=== PATIENT | female | born 1965 | race Caucasian/White ===

== ENCOUNTER 2017-02-14 11:22 | Emergency (ER) | payer MEDICARE, MEDICAID ==
[2017-02-14] MEDS ORDERED: NS 0.9% 1000 ML* 1,000 ML IV ONE (13:12)
--- NOTE | 2017-02-14 13:44 | RAD ---
HISTORY: Syncope COMPARISONS: None TECHNIQUE: Multiple contiguous axial CT scans were obtained of the head without intravenous contrast. FINDINGS: HEMORRHAGE/INFARCT: There is no hemorrhage or acute infarct. MASSES/SHIFT: There is no mass or shift. EXTRA-AXIAL SPACES: There are no extra-axial fluid collections. SULCI AND VENTRICLES: There is diffuse and proportional enlargement of the sulci and ventricles. CEREBRUM: There are no focal parenchymal abnormalities. BRAINSTEM: There are no focal parenchymal abnormalities. CEREBELLUM: There are no focal parenchymal abnormalities. VESSELS: The vessels are grossly normal. PARANASAL SINUSES: The paranasal sinuses are clear. ORBITS: The orbits are unremarkable. BONES AND SOFT TISSUE: No bone or soft tissue abnormalities are noted. OTHER: None IMPRESSION: NO ACUTE INTRACRANIAL PATHOLOGY.
--- NOTE | 2017-02-14 13:57 | RAD ---
HISTORY: The COMPARISONS: None VIEWS: 4: Frontal dual-energy and lateral views of the chest. FINDINGS: CARDIOMEDIASTINAL SILHOUETTE: The cardiomediastinal silhouette is normal. AMA: The ama are normal. PLEURA: The costophrenic angles are sharp. No pleural abnormalities are noted. LUNG PARENCHYMA: There is hyperinflation with flattening of the diaphragm and expansion of the AP diameter of the chest. ABDOMEN: The upper abdomen is clear. There is no subphrenic gas. BONES AND SOFT TISSUES: No bone or soft tissue abnormalities are noted. OTHER: None. IMPRESSION: HYPERINFLATION. NO ACTIVE CARDIOPULMONARY DISEASE.
[2017-02-14 14:09] LABS: Hematocrit 42 % (35-47); Hemoglobin 13.9 g/dl (12.0-16.0); Mean Corpuscular HGB Conc 34 g/dl (31-36); Mean Corpuscular Hemoglobin 30 pg (27-31); Mean Corpuscular Volume 88 fL (80-97); Mean Platelet Volume 12 um3 (7.4-10.4); Red Cell Distribution Width 14 % (10.5-15)
[2017-02-14 14:10] LABS: Add Diff/Slide Review? Slide Review Added; Comments Flag Yes
[2017-02-14 14:26] LABS: Albumin 4.4 g/dL (3.2-5.2); BUN/Creatinine Ratio 28.4 (8-20); Calcium 9.7 mg/dL (8.6-10.3); EGFR African American 106.8 (>60); EGFR Non-African American 83.1 (>60); Globulin 2.6 g/dL (2-4); Magnesium 2.2 mg/dL (1.9-2.7); Potassium 4.1 mmol/L (3.5-5.0); Total Bilirubin 0.4 mg/dL (0.2-1.0)
[2017-02-14 14:27] LABS: Troponin I 0.01 ng/mL (<0.04)
--- NOTE | 2017-02-14 14:59 | ED ---
Diann Elizondo Nilda, scribed for Aba Mei MD on 02/14/17 at 1325 . Syncope/Near Syncope - HPI Summary HPI Summary: This patient is a 51 year old F presenting to [facility] accompanied by assisted living staff with a chief complaint of unwitnessed fall today. Per residential aid, patient had a very large BM, walked to her room, fell, and was found on the ground with urinary incontinence, LOC, and confusion upon awaking (lasting 10 mins). Symptoms alleviated by spontaneous resolution. Patient denies trauma from fall, CP, palpitations, YANG, neck pain, and back pain. Per aid, the patient s mother notes that pt has had a similar episode in the past, stating that after having large BM, pt would experience dizziness upon standing. Pt is currently on no medications. - History Of Current Complaint Chief Complaint: EDSyncope Time Seen by Provider: 02/14/17 12:47 Hx Obtained From: Family/Hog Scraper - residential living staff Onset/Duration: Sudden Onset, Lasting Minutes, Resolved Context: Unwitnessed Activity At Onset: Other - walking to room Aggravating Factor(s): Nothing Alleviating Factor(s): Spontaneous Resolution Associated Signs And Symptoms: Other - denies trauma from fall, CP, palpitations , YANG, neck pain, and back pain. - Allergies/Home Medications Allergies/Adverse Reactions: Allergies Allergy/AdvReac Type Severity Reaction Status Date / Time No Known Allergies Allergy Verified 02/14/17 11:36 PMH/Surg Hx/FS Hx/Imm Hx Sensory History: Denies: Hx Legally Blind EENT History: Denies: Hx Deafness Infectious Disease History: No Infectious Disease History: Denies: Traveled Outside the [place] in Last 30 Days - Family History Known Family History: Negative: Hypertension, Diabetes - Social History Lives: Assisted Living Alcohol Use: None Substance Use Type: Reports: None Smoking Status (MU): Never Smoked Tobacco Review of Systems Negative: Palpitations, Chest Pain Positive: incontinence Positive: Other - negative: trauma from fall, neck pain, back pain Neurological: Other - LOC, confusion resolved Positive: Syncope - resolved. Negative: Headache All Other Systems Reviewed And Are Negative: Yes Physical Exam Triage Information Reviewed: Yes Vital Signs On Initial Exam: Initial Vitals Temp Pulse Resp BP Pulse Ox 97.8 F 100 18 158/81 95 02/14/17 11:31 02/14/17 11:31 02/14/17 11:31 02/14/17 11:31 02/14/17 11:31 Vital Signs Reviewed: Yes Appearance: Positive: Well-Appearing, No Pain Distress Skin: Positive: Warm, Skin Color Reflects Adequate Perfusion Head/Face: Positive: Normal Head/Face Inspection Eyes: Positive: EOMI ENT: Positive: Normal ENT inspection Neck: Positive: Nontender Respiratory/Lung Sounds: Positive: Clear to Auscultation, Breath Sounds Present Cardiovascular: Positive: RRR. Negative: Murmur Abdomen Description: Positive: Nontender Musculoskeletal: Positive: Strength/ROM Intact Neurological: Positive: Sensory/Motor Intact, Alert, Oriented to Person Place, Time, CN Intact II-III Psychiatric: Positive: Normal - [place] Coma Scale Best Eye Response: 4 - Spontaneous Best Motor Response: 6 - Obeys Commands Best Verbal Response: 5 - Oriented Coma Scale Total: 15 Diagnostics - Vital Signs Vital Signs Temp Pulse Resp BP Pulse Ox 02/14/17 11:31 97.8 F 100 18 158/81 95 - Laboratory Result Diagrams: 02/14/17 14:00 02/14/17 14:00 Lab Statement: Any lab studies that have been ordered have been reviewed, and results considered in the medical decision making process. - Radiology CXR Radiology Interpretation Completed By: Radiologist - Hyperinfiltation. No acute cardiopulmonary disease. ED physician has reviewed this report and agrees. - CT Brain CT Interpretation Completed By: Radiologist - no acute intracranial pathology. ED physician has reviewed this report and agrees. - EKG 1150 Cardiac Rate: NL EKG Rhythm: Sinus Rhythm - @ 85 bpm EKG Interpretation: nl NE, QRS, and QT. No STEMI Course/Dx Assessment/Plan: This patient is a 51 year old F presenting to [facility] accompanied by assisted living staff with a chief complaint of unwitnessed fall today. Per residential aid, patient had a very large BM, walked to her room, fell, and was found on the ground with urinary incontinence, LOC, and confusion upon awaking (lasting 10 mins). Symptoms alleviated by spontaneous resolution. Patient denies trauma from fall, CP, palpitations, YANG, neck pain, and back pain. Per aid, the patients mother notes that pt has had a similar episode in the past, stating that after having large BM, pt would experience dizziness upon standing. Pt is currently on no medications. Pending EKG, CXR, CT Brain, and labs. EKG reveals NSR, 85 bpm, nl NE, QRS, and QT. No STEMI. CXR reveals hyperinfiltration. No acute cardiopulmonary disease. CT brain reveals NAD. The patient has no heart murmur, and has normal heart size on xray. Her CT is negative, and labs are good. She has a history of getting dizzy after valsalva and large BM. She had a large BM today as well. She sounds like she had a vaso vagal syncopal episode after BM. The patient was discussed with her PMD and she will be seen in the office for continued work up. - Diagnoses Provider Diagnoses: Vasovagal syncope, Hypertension - Physician Notifications Discussed Care of Patient With: Dhara Matthews - Dr Matthews is aware of patient history, and presentation today and of her work up here. She wants to follow up with the patient for outpatient Echo, and further work up in the next week. Time Discussed With Above Provider: 14:56 Discharge - Discharge Plan Condition: Good Disposition: HOME Patient Education Materials: Syncope (ED), Hypertension (ED) Referrals: Dhara Matthews MD [Primary Care Provider] - 2 Days The documentation as recorded by the Diann warner Nilda accurately reflects the service I personally performed and the decisions made by me, Aba Mei MD.
[2017-02-14 15:03] LABS: TSH (Thyroid Stimulating Horm) 2.53 mcIU/mL (0.34-5.60)
[2017-02-14 15:15] VITALS: BP 109/68
== END 2017-02-14 15:15 | disposition home or self-care (01) ==
LOC: ED 11:22
DX: R55 Syncope and collapse (principal); M54.2 Cervicalgia; M54.9 Dorsalgia, unspecified; I10 Essential (primary) hypertension
CPT/HCPCS: 36415; 70450; 71020; 80053; 83605; 83735; 84443; 84484; 85025; 85379; 93005; 96360; 99282

== ENCOUNTER 2017-03-18 11:22 | Emergency (ER) | payer MEDICAID, MEDICARE ==
[2017-03-18 11:43] VITALS: BP 111/72
--- NOTE | 2017-03-18 12:05 | UC ---
Upper Extremity HPI - HPI Summary HPI Summary: c/o left arm pain that comes and goes, fell in shower this am and son helped her up. didnt c/o of pain at that time but now she is. no radiation up into neck mostly mid arm. no limited rom at this time. didnt take anything otc no other c/o pain anywhere else - History of Current Complaint Chief Complaint: UCUpperExtremity Stated Complaint: LEFT ARM INJURY Time Seen by Provider: 03/18/17 11:57 Hx Obtained From: Patient Hx Last Menstrual Period: January ?: No Onset/Duration: Sudden Onset - this am - fell in shower Severity Initially: Mild Severity Currently: Mild Character: Dull Aggravating Factor(s): Movement Alleviating Factor(s): Nothing Associated Signs And Symptoms: Positive: Negative - Allergies/Home Medications Allergies/Adverse Reactions: Allergies Allergy/AdvReac Type Severity Reaction Status Date / Time No Known Allergies Allergy Verified 03/18/17 11:33 Home Medications: Home Medications Docusate CAP* [Colace Cap*] 100 mg PO BID 03/18/17 [History Confirmed 03/18/17] PMH/Surg Hx/FS Hx/Imm Hx - Surgical History Surgical History: None - Family History Known Family History: Negative: Hypertension, Diabetes - Social History Alcohol Use: None Substance Use Type: None Smoking Status (MU): Never Smoked Tobacco Review of Systems Constitutional: Negative Skin: Negative Eyes: Negative ENT: Negative Respiratory: Negative Cardiovascular: Negative Gastrointestinal: Negative Genitourinary: Negative Motor: Negative Musculoskeletal: Myalgia - left arm Psychological: Negative Is Patient Immunocompromised?: No All Other Systems Reviewed And Are Negative: Yes Physical Exam Triage Information Reviewed: Yes Appearance: Well-Appearing Vital Signs: Initial Vital Signs Temp 97.1 F 03/18/17 11:36 Pulse 80 03/18/17 11:36 Resp 20 03/18/17 11:36 BP 111/72 03/18/17 11:36 Vital Signs Reviewed: Yes Eyes: Positive: Conjunctiva Clear Neck exam: Normal Respiratory Exam: Normal Cardiovascular Exam: Normal Musculoskeletal Exam: Normal Musculoskeletal: Positive: Strength Intact, ROM Intact, No Edema Neurological: Positive: Alert Psychological Exam: Normal Upper Extremity Course/Dx - Course Course Of Treatment: xray of humerus ordered. RICE as directed. take tylenol or ibuprofen every 4-6 hours prn pain - dose as directed on bottle. f/u pcp 1 week if symptoms not resolving - Differential Dx/Diagnosis Provider Diagnoses: muscle strain Discharge - Discharge Plan Condition: Good Disposition: HOME Patient Education Materials: Muscle Strain (ED) Referrals: Dhara Matthews MD [Primary Care Provider] - 1 Week
--- NOTE | 2017-03-18 13:00 | RAD ---
HISTORY: Left distal humerus pain COMPARISONS: None VIEWS: 3, Frontal internal rotation and external rotation views of the left humerus FINDINGS: BONE DENSITY: Normal. BONES: There is no displaced fracture. JOINTS: There is no arthropathy. ALIGNMENT: There is no dislocation. SOFT TISSUES: Unremarkable. OTHER FINDINGS: None. IMPRESSION: NO ACUTE OSSEOUS INJURY. IF SYMPTOMS PERSIST, RECOMMEND REPEAT IMAGING.
== END 2017-03-18 13:16 | disposition home or self-care (01) ==
LOC: UCCORT 11:22
DX: S46.912A Strain of unspecified muscle, fascia and tendon at shoulder and upper arm level, left arm, initial encounter (principal); W19.XXXA Unspecified fall, initial encounter; Y93.E1 Activity, personal bathing and showering; Y92.9 Unspecified place or not applicable
CPT/HCPCS: 99211; G0463

== ENCOUNTER 2017-04-15 09:39 | Inpatient (IN) | payer MEDICARE, MEDICAID ==
[2017-04-15 10:36] LABS: Hematocrit 44 % (35-47); Hemoglobin 14.6 g/dl (12.0-16.0); Mean Corpuscular HGB Conc 33 g/dl (31-36); Mean Corpuscular Hemoglobin 29 pg (27-31); Mean Corpuscular Volume 87 fL (80-97); Mean Platelet Volume 12 um3 (7.4-10.4); Platelet Count 148 10^3/ul (150-450); Red Blood Count 5.03 10^6/ul (4.0-5.4); Red Cell Distribution Width 14 % (10.5-15); White Blood Count 5.2 10^3/ul (3.5-10.8)
[2017-04-15 10:54] LABS: EGFR Non-African American 73.8 (>60)
[2017-04-15 11:02] LABS: ABS Basophils 0 10^3/ul (0-0.2); ABS Eosinophils 0 10^3/ul (0-0.6); ABS Monocytes 0.7 10^3/ul (0-0.8); ABS Neutrophils 3.4 10^3/ul (1.5-7.7); ABS Nucleated RBC 0 10^3/ul; Eosinophil % 0.2 % (0-6); Lymphocyte % 20.2 % (25-47); Nucleated Red Blood Cells % 0
--- NOTE | 2017-04-15 11:29 | RAD ---
Indication: Cough. Single frontal view of the chest performed at 1043 hours was reviewed. Comparison is made with previous exam dated February 14, 2017. No mediastinal shift is noted. Heart is of normal size and configuration. There is infiltrate in the left base consistent with early pneumonia. IMPRESSION: THERE IS LIKELY EARLY PNEUMONIA IN THE LEFT LUNG BASE.
[2017-04-15] MEDS ORDERED: Levofloxacin 750 MG IVPREMIX(* 750 MG/150 ML BAG IVPB ONE (11:52)
[2017-04-15] MEDS ORDERED: NS 0.9% 1000 ML* 1,000 ML IV ONE (11:53)
[2017-04-15 12:14] LABS: Urine Appearance Cloudy; Urine Blood Negative (Negative); Urine Color Yellow; Urine Ketones Trace (Negative); Urine Protein Negative (Negative); Urine Specific Gravity 1.026 (1.010-1.030); Urine Urobilinogen Negative (Negative)
[2017-04-15] MEDS ORDERED: NS 0.9% 1000 ML* 2,000 ML IV ONE (13:56)
[2017-04-15] MEDS ORDERED: Ondansetron INJ* 2 MG/ML VIAL IV PRN (14:17)
[2017-04-15] MEDS ORDERED: Acetaminophen TAB* 325 MG PO PRN (14:17)
--- NOTE | 2017-04-15 17:52 | ED ---
Ozzie Elizondo Abhishek, scribed for Wilberto Hobbs MD on 04/15/17 at 1014 . Syncope/Near Syncope - HPI Summary HPI Summary: This patient is a 51 year old F presenting to [facility] accompanied by two females with a chief complaint of syncope since 04/15/17 few hours ago. Multiple episodes have occurred in the past and this episode is the 2nd one this month. The first episode this month occurred on 04/12/17. Dates of other prior syncopal episodes were stated to be one in January and another one in March. The most recent episode occurred, This morning when the pt was getting ready for her shower. According to the family/caretakers, todays episodes were longer than normally but only last minutes. PT states she feels normal now. No memory of the syncopal episode. Onset of syncope was immediately after report of dizziness. Pt currently has a cough and other cold like symptoms. The patient rates the pain 0/10 in severity. Symptoms aggravated by nothing. Symptoms alleviated by nothing. Pertinent PMHx of vasovagal. Patient reports dizziness, and dehydration. Patient denies fevers, and decreased appetite. - History Of Current Complaint Chief Complaint: EDSyncope Time Seen by Provider: 04/15/17 09:47 Hx Obtained From: Patient Onset/Duration: Sudden Onset, Lasting Minutes Timing: Frequency Of Episodes - 2nd episode this month Context: Witnessed Activity At Onset: Unknown Associated Head Trauma: No Aggravating Factor(s): Nothing Alleviating Factor(s): Nothing Associated Signs And Symptoms: Dizzy, Other - Negative fevers and decreased appetite Frequency: Episodes x___ - 2 - Allergies/Home Medications Allergies/Adverse Reactions: Allergies Allergy/AdvReac Type Severity Reaction Status Date / Time No Known Allergies Allergy Verified 04/15/17 09:43 PMH/Surg Hx/FS Hx/Imm Hx Sensory History: Denies: Hx Legally Blind, Hx Deafness Opthamlomology History: Denies: Hx Legally Blind Neurological History: Reports: Other Neuro Impairments/Disorders - Vasovagal syncope Infectious Disease History: No Infectious Disease History: Denies: Traveled Outside the [place] in Last 30 Days - Family History Known Family History: Negative: Hypertension, Diabetes - Social History Alcohol Use: None Substance Use Type: Reports: None Smoking Status (MU): Never Smoked Tobacco Review of Systems Positive: Other - deydration. Negative: Fever Eyes: Negative ENT: Negative Cardiovascular: Negative Respiratory: Negative Gastrointestinal: Other - Negative decreased appetite Genitourinary: Negative Musculoskeletal: Negative Skin: Negative Neurological: Other - dizziness Positive: Syncope Psychological: Normal All Other Systems Reviewed And Are Negative: Yes Physical Exam - Summary Physical Exam Summary: Appearance: The patient is well-nourished in no acute distress and in no acute pain. Skin: The skin is warm and dry and skin color reflects adequate perfusion. HEENT: ~The head is normocephalic and atraumatic. The pupils are equal and reactive. The conjunctivae are clear and without drainage. ~Nares are patent and without drainage. ~Mouth reveals dry mucous membraneand the throat is without erythema and exudate. ~The external ears are intact. The ear canals are patent and without drainage. The tympanic membranes are intact. Neck: the neck is supple with full range of motion and non-tender. There are no carotid bruits. ~There is no neck vein distension. Respiratory: Chest is non-tender. ~Lungs are clear to auscultation and breath sounds are symmetrical and equal. Cardiovascular: Borderline tachycardia. ~There is no murmur or rub auscultated. ~~There is no peripheral edema and pulses are symmetrical and equal. Abdomen: The abdomen is soft and non-tender. ~There are normal bowel sounds heard in all four quadrants and there is no organomegaly palpated. Musculoskeletal: There is no back tenderness noted. ~Extremities are non-tender with full range of motion. ~There is good capillary refill. ~There is no peripheral edema or calf tenderness elicited. Neurological: Patient is alert and oriented to person, place and time. ~The patient has symmetrical motor strength in all four extremities. ~Cranial nerves are grossly intact. Deep tendon reflexes are symmetrical and equal in all four extremities. Psychiatric: The patient has an appropriate affect and does not exhibit any anxiety or depression. Triage Information Reviewed: Yes Vital Signs On Initial Exam: Initial Vitals Temp Pulse Resp BP Pulse Ox 97.5 F 97 16 102/65 98 04/15/17 09:43 04/15/17 09:43 04/15/17 09:43 04/15/17 09:43 04/15/17 09:43 Vital Signs Reviewed: Yes - [place] Coma Scale Coma Scale Total: 15 Diagnostics - Vital Signs Vital Signs Temp Pulse Resp BP Pulse Ox 04/15/17 10:06 95 04/15/17 10:00 89 20 108/80 96 04/15/17 09:57 91 16 97 04/15/17 09:54 104/69 04/15/17 09:43 97.5 F 97 16 102/65 98 - Laboratory Lab Results: Lab Results 04/15/17 04/15/17 04/15/17 Range/Units 10:15 10:15 10:15 WBC 5.2 (3.5-10.8) 10^3/ul RBC 5.03 (4.0-5.4) 10^6/ul Hgb 14.6 (12.0-16.0) g/dl Hct 44 (35-47) % MCV 87 (80-97) fL MCH 29 (27-31) pg MCHC 33 (31-36) g/dl RDW 14 (10.5-15) % Plt Count 148 L (150-450) 10^3/ul MPV 12 H (7.4-10.4) um3 Neut % (Auto) 66.2 (38-83) % Lymph % (Auto) 20.2 L (25-47) % [place] % (Auto) 12.9 H (1-9) % Eos % (Auto) 0.2 (0-6) % Baso % (Auto) 0.5 (0-2) % Absolute Neuts (auto) 3.4 (1.5-7.7) 10^3/ul Absolute Lymphs (auto) 1.0 (1.0-4.8) 10^3/ul Absolute Monos (auto) 0.7 (0-0.8) 10^3/ul Absolute Eos (auto) 0 (0-0.6) 10^3/ul Absolute Basos (auto) 0 (0-0.2) 10^3/ul Absolute Nucleated RBC 0 10^3/ul Nucleated RBC % 0 Sodium 137 (133-145) mmol/L Potassium 4.0 (3.5-5.0) mmol/L Chloride 105 (101-111) mmol/L Carbon Dioxide 21 L (22-32) mmol/L Anion Gap 11 (2-11) mmol/L BUN 22 (6-24) mg/dL Creatinine 0.82 (0.51-0.95) mg/dL Est GFR ( Amer) 94.9 (>60) Est GFR (Non-Af Amer) 73.8 (>60) BUN/Creatinine Ratio 26.8 H (8-20) Glucose 87 (70-100) mg/dL Lactic Acid 1.3 (0.5-2.0) mmol/L Calcium 9.7 (8.6-10.3) mg/dL Magnesium 2.2 (1.9-2.7) mg/dL Total Bilirubin 0.40 (0.2-1.0) mg/dL AST 28 (13-39) U/L ALT 26 (7-52) U/L Alkaline Phosphatase 57 (34-104) U/L Troponin I 0.00 (<0.04) ng/mL Total Protein 7.3 (6.4-8.9) g/dL Albumin 4.2 (3.2-5.2) g/dL Globulin 3.1 (2-4) g/dL Albumin/Globulin Ratio 1.4 (1-3) TSH 2.32 (0.34-5.60) mcIU/mL Urine Color Urine Appearance Urine pH (5-9) Ur Specific [place] (1.010-1.030) Urine Protein (Negative) Urine Ketones (Negative) Urine Blood (Negative) Urine Nitrate (Negative) Urine Bilirubin (Negative) Urine Urobilinogen (Negative) Ur Leukocyte Esterase (Negative) Urine Glucose (Negative) Urine Ascorbic Acid (Negative) 04/15/17 Range/Units 12:04 WBC (3.5-10.8) 10^3/ul RBC (4.0-5.4) 10^6/ul Hgb (12.0-16.0) g/dl Hct (35-47) % MCV (80-97) fL MCH (27-31) pg MCHC (31-36) g/dl RDW (10.5-15) % Plt Count (150-450) 10^3/ul MPV (7.4-10.4) um3 Neut % (Auto) (38-83) % Lymph % (Auto) (25-47) % [place] % (Auto) (1-9) % Eos % (Auto) (0-6) % Baso % (Auto) (0-2) % Absolute Neuts (auto) (1.5-7.7) 10^3/ul Absolute Lymphs (auto) (1.0-4.8) 10^3/ul Absolute Monos (auto) (0-0.8) 10^3/ul Absolute Eos (auto) (0-0.6) 10^3/ul Absolute Basos (auto) (0-0.2) 10^3/ul Absolute Nucleated RBC 10^3/ul Nucleated RBC % Sodium (133-145) mmol/L Potassium (3.5-5.0) mmol/L Chloride (101-111) mmol/L Carbon Dioxide (22-32) mmol/L Anion Gap (2-11) mmol/L BUN (6-24) mg/dL Creatinine (0.51-0.95) mg/dL Est GFR ( Amer) (>60) Est GFR (Non-Af Amer) (>60) BUN/Creatinine Ratio (8-20) Glucose (70-100) mg/dL Lactic Acid (0.5-2.0) mmol/L Calcium (8.6-10.3) mg/dL Magnesium (1.9-2.7) mg/dL Total Bilirubin (0.2-1.0) mg/dL AST (13-39) U/L ALT (7-52) U/L Alkaline Phosphatase (34-104) U/L Troponin I (<0.04) ng/mL Total Protein (6.4-8.9) g/dL Albumin (3.2-5.2) g/dL Globulin (2-4) g/dL Albumin/Globulin Ratio (1-3) TSH (0.34-5.60) mcIU/mL Urine Color Yellow Urine Appearance Cloudy Urine pH 5.0 (5-9) Ur Specific [place] 1.026 (1.010-1.030) Urine Protein Negative (Negative) Urine Ketones Trace H (Negative) Urine Blood Negative (Negative) Urine Nitrate Negative (Negative) Urine Bilirubin Negative (Negative) Urine Urobilinogen Negative (Negative) Ur Leukocyte Esterase Negative (Negative) Urine Glucose Negative (Negative) Urine Ascorbic Acid * H (Negative) Result Diagrams: 04/15/17 10:15 04/15/17 10:15 Lab Statement: Any lab studies that have been ordered have been reviewed, and results considered in the medical decision making process. - Radiology Chest X-ray Radiology Interpretation Completed By: Radiologist - CXR reveals, per radiologist, THERE IS LIKELY EARLY PNEUMONIA IN THE LEFT LUNG BASE. ED physician has reviewed this radiology report and agrees. - EKG 1030 Cardiac Rate: NL EKG Rhythm: Sinus Rhythm - 86 bpm EKG Interpretation: An EKG Taken at 1030 reveals left axis deviation Course/Dx Course Of Treatment: Ms. Reynaga presented after a syncopal episode. She is unable to give any history of it and says she doesn't remember. It was reported to her family by staff that she was getting ready to take a shower and suddenly said 'I'm dizzy' and fainted. Something similar happened two days ago and also in January. It was felt to be vagal in January as she had just passed a large BM. She has been coughing recently and her CXR here was read as LLL infiltrate. She is being admitted to the hospital by the hospitalist service. - Diagnoses Provider Diagnoses: Pneumonia, Syncope and collapse Discharge - Discharge Plan Condition: Stable Disposition: ADMITTED TO [facility] The documentation as recorded by the Ozzie warner Abhishek accurately reflects the service I personally performed and the decisions made by me, Wilberto Hobbs MD.
[2017-04-15] MEDS: Docusate CAP* 100 MG PO SCH (21:39)
--- NOTE | 2017-04-15 22:30 | HP ---
CC: Dr. Dhara Matthews* HISTORY AND PHYSICAL: DATE OF ADMISSION: 04/15/17 TIME OF EVALUATION: 01:30 p.m. PRIMARY CARE PROVIDER: Dr. Dhara Matthews. SURROGATE DECISION MAKER: Patient's mother, Jonatan Reynaga, who could be reached at [phone]. CHIEF COMPLAINT: Syncopal episode-brought in by [facility] staff. HISTORY OF PRESENT ILLNESS: Please see the ED documentation by Dr. Jason Hobbs who called me about this 51-year-old female who comes to the emergency room accompanied by [facility] staff as well as her mother with an episode of syncope several hours prior to presentation. The patient has had several episodes of fainting over the past few months and this is the second episode this month, the previous episode occurred several days ago. There were other episodes in January and March. The patient was preparing for her shower and she was standing and the patient informed the staff that she did not feel well and then she passed out. There was an unspecified length of unconscious--one report was that she lost consciousness for 3 minutes. There were no convulsions. There were no recent fevers or episodes of malaise reported. Of note, the patient was noted (by her staff member during my interview) to not take adequate fluids and liquids and this is an ongoing challenge with the staff. The patient denied any chest pain or palpitation or any premonitory symptoms. The patient was not in any pain. She did not strike her head nor was she traumatized in anyway from her syncopal episode. The patient is in no apparent distress at this point, though the staff is concerned given this is the fourth or fifth syncopal episode in the past few months, they are concerned. Moreover the patient's workup included an abnormal chest x-ray with an infiltrate noted. There was also urinary retention detected with 400 cc and the patient had a Chávez inserted by the ED staff. A urinalysis was still pending. PAST MEDICAL HISTORY: Limited. MEDICATIONS: With minimal outpatient medications and her only standing medication reported is Colace 100 mg by mouth twice daily. P.r.n. medications include, 1. Topical Bacitracin. 2. OTC Robitussin. 3. OTC Tylenol. 4. OTC milk of magnesia. 5. OTC MiraLAX. ALLERGIES: No known drug allergies. FAMILY HISTORY: The patient's mother and father are alive. I was not able to collect medical history from them and the patient (their daughter) was unaware of any active medical problems though that seems unrelated based on the current presentation. SOCIAL HISTORY: The patient lives in the [place]. She is a nonsmoker. She is nondrinker. She is developmentally disabled. She is interactive and can give a history though not details regarding her medical history. She is a full code. PHYSICAL EXAMINATION ON ADMISSION: GENERAL APPEARANCE: No apparent distress. She is awake, alert and oriented x2 (to person and place-hospital) but not to date. This is apparently her baseline. VITAL SIGNS: On admission: Temperature 97.5 degrees Fahrenheit, pulse 70s to 80s and regular, respirations 16 to 18, oxygen saturation 100% on room air, blood pressure on the low side with pressures as low as systolic 89/67 but with fluid administration systolics in the 100s to one-teens over 60s to 70s. HEENT: Oropharynx is clear. Mucous membranes are moist. No posterior pharyngeal erythema or exudate. NECK: Supple. No elevated JVD. No carotid bruits. LUNGS: Her lung sounds are normal with good air excursion. HEART: Her heart sounds are normal without any murmurs, rubs or gallops appreciated. ABDOMEN: Soft and nontender. She is laughing and quite interactive and pleasant throughout the exam. EXTREMITIES: Without clubbing, cyanosis or edema. Her distal extremities are well perfused. MUSCULOSKELETAL: Normal with normal muscle bulk. She can move all extremities equally. She can stand independently. She stood without any difficulty for me. SKIN: Dry, intact and well perfused. NEUROLOGIC: I did not complete a detailed neurologic exam, but she has no focal gross sensory or motor deficits. She has got a baseline level of interaction. She certainly is developmentally disabled and laughing inappropriately but certainly pleasant and accompanied by her [employer] staff member who states she is at her baseline. ADMISSION DATA: White blood cell count normal at 5.2, hemoglobin 14.6, platelets 148. Blood chemistry normal except for a marginally low bicarb and elevated BUN to creatinine ratio at 26.8, lactic acid normal at 1.3. LFT's normal across the board, preserved protein with an albumin and total protein of 4.2 and 7.3 respectively. Her initial troponin was 0. TSH normal at 2.32. Urinalysis was normal except for trace ketones. EKG was normal sinus rhythm without any evidence of active ischemia. Chest x-ray was abnormal showing likely early pneumonia in the left lung base. IMPRESSION: Ms. Reynaga is a 51-year-old female with stated poor oral intake and fourth episode of syncope without warning while standing in her bathroom earlier today. She has mild hypotension that has been responsive to fluid so far. She has a chest x-ray showing an infiltrate. There was urinary retention and a Chávez catheter was placed by the staff, though the subsequent urinalysis was normal. Ms. Reynaga is being admitted to the hospitalist service and plan by medical problem will be as follows: 1. Syncopal episode: It is entirely possible, and perhaps even likely, that this is a recurrent vasovagal episode prompted by dehydration and perhaps an infection (infiltrate on chest [id number] pneumonia). The patient is also not taking adequate fluids according to the staff and her lab work demonstrates an elevated BUN to creatinine ratio, so this is certainly a reasonable explanation. The patient will be rehydrated. She has been started on IV Levaquin. She will have labs rechecked in the morning and her blood pressure will be followed. I requested orthostatic vital signs to be taken given her hypotension in the emergency room. She is entirely asymptomatic, I note her lactic acid is normal upon presentation to the emergency room. She is asymptomatic and pleasant at this point. 2. Urinary retention. The 400 cc of urine in her bladder is not an impressive amount. Certainly, the patient should have been able to void but I wonder if she would have voided with some additional time observing her. I am inclined to remove the Chávez later today and observe her overnight given the IV fluids we are administering and the lack of the renal failure and the normal lactic acid, I think she will make ample urine in response to this and we will have a chance to observe whether she has any further urinary retention and respond if that is observed. 3. We will request transthoracic echo and observe the patient on telemetry overnight pursuing to a general workup for syncope. 4. We will keep patient on observation status for starters, admit later if needed. 5. The patient is full code. 6. Surrogate decision maker is the patient's mother whose information is at the top of this document. TIME SPENT: Total time taken to admit Ms. Reynaga was 65 minutes, greater than half that time was spent going over the admission history and physical, examination and communicating plan of care to the [facility] team staff present at the bedside. A courtesy call was placed to the patient's mother to alert her to the patient' s bed assignment in the hospital and to offer answers to any questions that might exist. [id number]/[facility] #: [id number] DOUGLAS
[2017-04-16 07:49] LABS: ABS Basophils 0 10^3/ul (0-0.2); ABS Eosinophils 0 10^3/ul (0-0.6); ABS Monocytes 0.4 10^3/ul (0-0.8); ABS Neutrophils 2.2 10^3/ul (1.5-7.7); ABS Nucleated RBC 0 10^3/ul; Eosinophil % 0.5 % (0-6); Hematocrit 36 % (35-47); Hemoglobin 12.2 g/dl (12.0-16.0); Lymphocyte % 27.5 % (25-47); Mean Corpuscular HGB Conc 34 g/dl (31-36); Mean Corpuscular Hemoglobin 30 pg (27-31); Mean Corpuscular Volume 87 fL (80-97); Mean Platelet Volume 11 um3 (7.4-10.4); Nucleated Red Blood Cells % 0; Platelet Count 116 10^3/ul (150-450); Red Blood Count 4.12 10^6/ul (4.0-5.4); Red Cell Distribution Width 14 % (10.5-15); White Blood Count 3.6 10^3/ul (3.5-10.8)
[2017-04-16 08:08] LABS: EGFR Non-African American 96.5 (>60)
[2017-04-16] MEDS: Docusate CAP* 100 MG PO SCH ×2 (09:58→22:23)
[2017-04-16] MEDS ORDERED: Levofloxacin 500 MG IVPREMIX(* 500 MG/100 ML BAG IVPB SCH (12:30)
[2017-04-16] MEDS: Levofloxacin 500 MG IVPREMIX(* 500 MG/100 ML BAG IVPB SCH (17:06)
--- NOTE | 2017-04-16 17:57 | PN ---
Subjective Date of Service: 04/16/17 Interval History: Denies chest pain or shortness of breath, Denies abd pain or N/V/D. Denies headache or dizziness. Objective Active Medications: Acetaminophen (Tylenol Tab*) 650 mg PO Q4H PRN PRN Reason: FEVER/PAIN Docusate Sodium (Colace Cap*) 100 mg PO BID [facility] Last Admin: 04/16/17 09:58 Dose: 100 mg Levofloxacin/Dextrose (Levaquin 500 Mg Ivpremix(*)) 500 mg in 100 mls @ 100 mls /hr IVPB 1700 [facility] Last Admin: 04/16/17 17:06 Dose: 100 mls/hr Ondansetron HCl (Zofran Inj*) 4 mg IV Q4H PRN PRN Reason: NAUSEA/VOMITING Oxygen Devices in Use Now: None Appearance: appears comfortable sitting in the bed. Eyes: No Scleral Icterus Ears/Nose/Mouth/Throat: Clear Oropharnyx, Mucous Membranes Moist Neck: NL Appearance and Movements; NL JVP, Trachea Midline Respiratory: Symmetrical Chest Expansion and Respiratory Effort, Clear to Auscultation, - - diminished bilat Cardiovascular: NL Sounds; No Murmurs; No JVD, RRR, No Edema Abdominal: NL Sounds; No Tenderness; No Distention Extremities: No Edema, No Clubbing, Cyanosis Skin: No Rash or Ulcers Neurological: Alert and Oriented x 3 Nutrition: Taking PO's Result Diagrams: 04/16/17 07:41 04/16/17 07:41 Additional Lab and Data: Lab Results 04/15/17 04/15/17 04/15/17 Range/Units 10:15 10:15 10:15 WBC 5.2 (3.5-10.8) 10^3/ul RBC 5.03 (4.0-5.4) 10^6/ul Hgb 14.6 (12.0-16.0) g/dl Hct 44 (35-47) % MCV 87 (80-97) fL MCH 29 (27-31) pg MCHC 33 (31-36) g/dl RDW 14 (10.5-15) % Plt Count 148 L (150-450) 10^3/ul MPV 12 H (7.4-10.4) um3 Neut % (Auto) 66.2 (38-83) % Lymph % (Auto) 20.2 L (25-47) % [place] % (Auto) 12.9 H (1-9) % Eos % (Auto) 0.2 (0-6) % Baso % (Auto) 0.5 (0-2) % Absolute Neuts (auto) 3.4 (1.5-7.7) 10^3/ul Absolute Lymphs (auto) 1.0 (1.0-4.8) 10^3/ul Absolute Monos (auto) 0.7 (0-0.8) 10^3/ul Absolute Eos (auto) 0 (0-0.6) 10^3/ul Absolute Basos (auto) 0 (0-0.2) 10^3/ul Absolute Nucleated RBC 0 10^3/ul Nucleated RBC % 0 Sodium 137 (133-145) mmol/L Potassium 4.0 (3.5-5.0) mmol/L Chloride 105 (101-111) mmol/L Carbon Dioxide 21 L (22-32) mmol/L Anion Gap 11 (2-11) mmol/L BUN 22 (6-24) mg/dL Creatinine 0.82 (0.51-0.95) mg/dL Est GFR ( Amer) 94.9 (>60) Est GFR (Non-Af Amer) 73.8 (>60) BUN/Creatinine Ratio 26.8 H (8-20) Glucose 87 (70-100) mg/dL Lactic Acid 1.3 (0.5-2.0) mmol/L Calcium 9.7 (8.6-10.3) mg/dL Magnesium 2.2 (1.9-2.7) mg/dL Total Bilirubin 0.40 (0.2-1.0) mg/dL AST 28 (13-39) U/L ALT 26 (7-52) U/L Alkaline Phosphatase 57 (34-104) U/L Troponin I 0.00 (<0.04) ng/mL Total Protein 7.3 (6.4-8.9) g/dL Albumin 4.2 (3.2-5.2) g/dL Globulin 3.1 (2-4) g/dL Albumin/Globulin Ratio 1.4 (1-3) TSH 2.32 (0.34-5.60) mcIU/mL Urine Color Urine Appearance Urine pH (5-9) Ur Specific [place] (1.010-1.030) Urine Protein (Negative) Urine Ketones (Negative) Urine Blood (Negative) Urine Nitrate (Negative) Urine Bilirubin (Negative) Urine Urobilinogen (Negative) Ur Leukocyte Esterase (Negative) Urine Glucose (Negative) Urine Ascorbic Acid (Negative) 04/15/17 Range/Units 12:04 WBC (3.5-10.8) 10^3/ul RBC (4.0-5.4) 10^6/ul Hgb (12.0-16.0) g/dl Hct (35-47) % MCV (80-97) fL MCH (27-31) pg MCHC (31-36) g/dl RDW (10.5-15) % Plt Count (150-450) 10^3/ul MPV (7.4-10.4) um3 Neut % (Auto) (38-83) % Lymph % (Auto) (25-47) % [place] % (Auto) (1-9) % Eos % (Auto) (0-6) % Baso % (Auto) (0-2) % Absolute Neuts (auto) (1.5-7.7) 10^3/ul Absolute Lymphs (auto) (1.0-4.8) 10^3/ul Absolute Monos (auto) (0-0.8) 10^3/ul Absolute Eos (auto) (0-0.6) 10^3/ul Absolute Basos (auto) (0-0.2) 10^3/ul Absolute Nucleated RBC 10^3/ul Nucleated RBC % Sodium (133-145) mmol/L Potassium (3.5-5.0) mmol/L Chloride (101-111) mmol/L Carbon Dioxide (22-32) mmol/L Anion Gap (2-11) mmol/L BUN (6-24) mg/dL Creatinine (0.51-0.95) mg/dL Est GFR ( Amer) (>60) Est GFR (Non-Af Amer) (>60) BUN/Creatinine Ratio (8-20) Glucose (70-100) mg/dL Lactic Acid (0.5-2.0) mmol/L Calcium (8.6-10.3) mg/dL Magnesium (1.9-2.7) mg/dL Total Bilirubin (0.2-1.0) mg/dL AST (13-39) U/L ALT (7-52) U/L Alkaline Phosphatase (34-104) U/L Troponin I (<0.04) ng/mL Total Protein (6.4-8.9) g/dL Albumin (3.2-5.2) g/dL Globulin (2-4) g/dL Albumin/Globulin Ratio (1-3) TSH (0.34-5.60) mcIU/mL Urine Color Yellow Urine Appearance Cloudy Urine pH 5.0 (5-9) Ur Specific [place] 1.026 (1.010-1.030) Urine Protein Negative (Negative) Urine Ketones Trace H (Negative) Urine Blood Negative (Negative) Urine Nitrate Negative (Negative) Urine Bilirubin Negative (Negative) Urine Urobilinogen Negative (Negative) Ur Leukocyte Esterase Negative (Negative) Urine Glucose Negative (Negative) Urine Ascorbic Acid * H (Negative) Assess/Plan/Problems-Billing Assessment: This is a 51 y.o female that presented to the emergency room for syncopal episode. patient has had several syncopal episodes in the past month. Chest xray in the emergency room showed infiltrate. She was also noted to have urinary retention so had a hernandez placed. hernandez was removed today will monitor output. - Patient Problems (1) Syncopal episodes Current Visit: Yes Status: Acute Code(s): R55 - SYNCOPE AND COLLAPSE SNOMED Code(s): 625479488 Comment: TTE- pending will obtain orthostatic vital signs in the AM currently denies dizziness monitor on telemetry (2) Urinary retention Current Visit: Yes Status: Acute Code(s): R33.9 - RETENTION OF URINE, UNSPECIFIED SNOMED Code(s): 108883984 Comment: Will remove hernandez today - monitor voiding Status and Disposition: Inpatient ; echo pending will discharge in AM pending echo results will monitor urine output post voiding
--- NOTE | 2017-04-16 18:24 | ECHO ---
Patient: EMETERIO AVERY [facility] Rec#: [id number] : 1965 Date: 04/16/2017 Age: 51y Height: 154.94 cm / 61.0 in Weight: 69.4 kg / 153.0 lbs Sex: F BSA: 1.69 Room#: [facility] Admit Date#: 04/15/2017 Type: Inpatient Referring: Herve Loeng MD Reading: Bernardino Graham MD Driver Recruiter: Josselyn Woody RDCS,RDMS CC: Dhara Matthews MD Transthoracic Echocardiogram Indication: Syncope BP: 127/74 HR: 80 Rhythm: NSR Findings History: Hypotension Technical Comments: The study quality is fair. Left Ventricle: The left ventricular chamber size is normal. There is no left ventricular hypertrophy. The left ventricle appears hyperdynamic. The estimated ejection fraction is 60-65%. Normal left ventricular diastolic filling is observed. Left Atrium: The left atrial chamber size is normal. Right Ventricle: The right ventricular chamber size and systolic function are within normal limits. Right Atrium: The right atrial cavity size is normal. Aortic Valve: There is no evidence of aortic valve thickening. Systolic excursion of the aortic valve is normal. There is no evidence of aortic regurgitation. There is no evidence of aortic stenosis. Mitral Valve: The mitral valve leaflets appear normal. There is no evidence of mitral regurgitation. There is no evidence of mitral stenosis. Tricuspid Valve: The tricuspid valve leaflets are normal. There is trace tricuspid regurgitation. Unable to estimate the right ventricular systolic pressure. Pulmonic Valve: There is no evidence of pulmonic valve thickening. There is a trace pulmonic regurgitation. Pericardium: There is no significant pericardial effusion. Aorta: The aortic root appears normal. There is no dilatation of the aortic arch. Pulmonary Artery: The main pulmonary artery appears normal. Venous: The inferior vena cava is not visualized. Summary: There was not any prior study for comparison. Conclusions The left ventricle appears hyperdynamic. The estimated ejection fraction is 60-65%. There is trace tricuspid regurgitation. No significant valve findings. Measurements Name Value Normal Range RVIDd (AP) 2D 2.6 cm (0.9 - 2.6) RAd ISD 4CH 4 cm (3.4 - 4.9) RA (A4C)W 4.2 cm (2.9 - 4.6) IVSd (2D) 0.9 cm (0.6 - 1) LVPWd (2D) 1 cm (0.6 - 1) LVIDd (2D) 3.6 cm (3.6 - 5.4) LVIDs (2D) 2.8 cm - LV FS (2D) 22 % (25 - 45) Aortic Annulus 2 cm (1.4 - 2.6) Ao root diameter (2D) 2.9 cm (2.1 - 3.5) Ascending Ao 2.1 cm (2.1 - 3.4) Aortic arch 2.4 cm (1.8 - 3.4) LA dimension (AP) 2D 3.1 cm (2.3 - 3.8) LAd ISD 4CH 4.5 cm (2.9 - 5.3) LA ISD 4CH W 3.6 cm (2.5 - 4.5) Name Value Normal Range LA ESV SP 4CH (A/L) 49.64 ml - LA ESV SP 4CH (MOD) 46.61 ml - Name Value Normal Range MV E-wave Vmax 0.8 m/sec - MV deceleration time 188 msec - MV A-wave Vmax 0.6 m/sec - MV E:A ratio 1.3 ratio - P. vein S-wave Vmax 0.5 m/sec - P. vein D-wave Vmax 0.3 m/sec - P. vein S:D Vmax ratio 1.4 ratio - P. vein A-wave duration 76.1 msec - LV septal e' Vmax 0.08 m/sec - LV lateral e' Vmax 0.09 m/sec - LV E:e' septal ratio 10 ratio - LV E:e' lateral ratio 8 ratio - Name Value Normal Range AV Vmax 1.2 m/sec - AV VTI 25 cm - AV peak gradient 6 mmHg - AV mean gradient 2.8 mmHg - LVOT Vmax 1.1 m/sec - LVOT VTI 22.3 cm - LVOT peak gradient 5 mmHg - LVOT mean gradient 2.5 mmHg - JOSE Vmax 0.9 m/sec - Name Value Normal Range RAP 8 mmHg - Name Value Normal Range PV Vmax 0.8 m/sec - PV peak gradient 2.6 mmHg -
--- NOTE | 2017-04-17 09:06 | PN ---
Subjective Date of Service: 04/17/17 Interval History: Patient states that she feels better, no c/o dizziness this am. Denies N/V/D . denies chest pain or shortness of breath. patient ambulated to the bathroom gait was steady denied dizziness. Family History: Unchanged from Admission Social History: Unchanged from Admission Past Medical History: Unchanged from Admission Objective Active Medications: Acetaminophen (Tylenol Tab*) 650 mg PO Q4H PRN PRN Reason: FEVER/PAIN Docusate Sodium (Colace Cap*) 100 mg PO BID [facility] Last Admin: 04/16/17 22:23 Dose: 100 mg Levofloxacin/Dextrose (Levaquin 500 Mg Ivpremix(*)) 500 mg in 100 mls @ 100 mls /hr IVPB 1700 [facility] Last Admin: 04/16/17 17:06 Dose: 100 mls/hr Ondansetron HCl (Zofran Inj*) 4 mg IV Q4H PRN PRN Reason: NAUSEA/VOMITING Vital Signs - 8 hr 04/17/17 04/17/17 04:15 07:42 Temperature 98.5 F 98.1 F Pulse Rate 84 79 Respiratory 14 15 Rate Blood Pressure 104/72 106/68 (mmHg) O2 Sat by Pulse 99 98 Oximetry Oxygen Devices in Use Now: None Appearance: awake, alert, appears comfortable Eyes: No Scleral Icterus Ears/Nose/Mouth/Throat: Clear Oropharnyx, Mucous Membranes Moist Neck: NL Appearance and Movements; NL JVP, Trachea Midline Respiratory: Symmetrical Chest Expansion and Respiratory Effort, Clear to Auscultation Cardiovascular: NL Sounds; No Murmurs; No JVD, RRR, No Edema Abdominal: NL Sounds; No Tenderness; No Distention Extremities: No Edema, No Clubbing, Cyanosis Skin: No Rash or Ulcers Neurological: Alert and Oriented x 3 Nutrition: Taking PO's Result Diagrams: 04/16/17 07:41 04/16/17 07:41 Additional Lab and Data: Lab Results 04/15/17 04/15/17 04/15/17 Range/Units 10:15 10:15 10:15 WBC 5.2 (3.5-10.8) 10^3/ul RBC 5.03 (4.0-5.4) 10^6/ul Hgb 14.6 (12.0-16.0) g/dl Hct 44 (35-47) % MCV 87 (80-97) fL MCH 29 (27-31) pg MCHC 33 (31-36) g/dl RDW 14 (10.5-15) % Plt Count 148 L (150-450) 10^3/ul MPV 12 H (7.4-10.4) um3 Neut % (Auto) 66.2 (38-83) % Lymph % (Auto) 20.2 L (25-47) % [place] % (Auto) 12.9 H (1-9) % Eos % (Auto) 0.2 (0-6) % Baso % (Auto) 0.5 (0-2) % Absolute Neuts (auto) 3.4 (1.5-7.7) 10^3/ul Absolute Lymphs (auto) 1.0 (1.0-4.8) 10^3/ul Absolute Monos (auto) 0.7 (0-0.8) 10^3/ul Absolute Eos (auto) 0 (0-0.6) 10^3/ul Absolute Basos (auto) 0 (0-0.2) 10^3/ul Absolute Nucleated RBC 0 10^3/ul Nucleated RBC % 0 Sodium 137 (133-145) mmol/L Potassium 4.0 (3.5-5.0) mmol/L Chloride 105 (101-111) mmol/L Carbon Dioxide 21 L (22-32) mmol/L Anion Gap 11 (2-11) mmol/L BUN 22 (6-24) mg/dL Creatinine 0.82 (0.51-0.95) mg/dL Est GFR ( Amer) 94.9 (>60) Est GFR (Non-Af Amer) 73.8 (>60) BUN/Creatinine Ratio 26.8 H (8-20) Glucose 87 (70-100) mg/dL Lactic Acid 1.3 (0.5-2.0) mmol/L Calcium 9.7 (8.6-10.3) mg/dL Magnesium 2.2 (1.9-2.7) mg/dL Total Bilirubin 0.40 (0.2-1.0) mg/dL AST 28 (13-39) U/L ALT 26 (7-52) U/L Alkaline Phosphatase 57 (34-104) U/L Troponin I 0.00 (<0.04) ng/mL Total Protein 7.3 (6.4-8.9) g/dL Albumin 4.2 (3.2-5.2) g/dL Globulin 3.1 (2-4) g/dL Albumin/Globulin Ratio 1.4 (1-3) TSH 2.32 (0.34-5.60) mcIU/mL Urine Color Urine Appearance Urine pH (5-9) Ur Specific [place] (1.010-1.030) Urine Protein (Negative) Urine Ketones (Negative) Urine Blood (Negative) Urine Nitrate (Negative) Urine Bilirubin (Negative) Urine Urobilinogen (Negative) Ur Leukocyte Esterase (Negative) Urine Glucose (Negative) Urine Ascorbic Acid (Negative) 04/15/17 Range/Units 12:04 WBC (3.5-10.8) 10^3/ul RBC (4.0-5.4) 10^6/ul Hgb (12.0-16.0) g/dl Hct (35-47) % MCV (80-97) fL MCH (27-31) pg MCHC (31-36) g/dl RDW (10.5-15) % Plt Count (150-450) 10^3/ul MPV (7.4-10.4) um3 Neut % (Auto) (38-83) % Lymph % (Auto) (25-47) % [place] % (Auto) (1-9) % Eos % (Auto) (0-6) % Baso % (Auto) (0-2) % Absolute Neuts (auto) (1.5-7.7) 10^3/ul Absolute Lymphs (auto) (1.0-4.8) 10^3/ul Absolute Monos (auto) (0-0.8) 10^3/ul Absolute Eos (auto) (0-0.6) 10^3/ul Absolute Basos (auto) (0-0.2) 10^3/ul Absolute Nucleated RBC 10^3/ul Nucleated RBC % Sodium (133-145) mmol/L Potassium (3.5-5.0) mmol/L Chloride (101-111) mmol/L Carbon Dioxide (22-32) mmol/L Anion Gap (2-11) mmol/L BUN (6-24) mg/dL Creatinine (0.51-0.95) mg/dL Est GFR ( Amer) (>60) Est GFR (Non-Af Amer) (>60) BUN/Creatinine Ratio (8-20) Glucose (70-100) mg/dL Lactic Acid (0.5-2.0) mmol/L Calcium (8.6-10.3) mg/dL Magnesium (1.9-2.7) mg/dL Total Bilirubin (0.2-1.0) mg/dL AST (13-39) U/L ALT (7-52) U/L Alkaline Phosphatase (34-104) U/L Troponin I (<0.04) ng/mL Total Protein (6.4-8.9) g/dL Albumin (3.2-5.2) g/dL Globulin (2-4) g/dL Albumin/Globulin Ratio (1-3) TSH (0.34-5.60) mcIU/mL Urine Color Yellow Urine Appearance Cloudy Urine pH 5.0 (5-9) Ur Specific [place] 1.026 (1.010-1.030) Urine Protein Negative (Negative) Urine Ketones Trace H (Negative) Urine Blood Negative (Negative) Urine Nitrate Negative (Negative) Urine Bilirubin Negative (Negative) Urine Urobilinogen Negative (Negative) Ur Leukocyte Esterase Negative (Negative) Urine Glucose Negative (Negative) Urine Ascorbic Acid * H (Negative) Assess/Plan/Problems-Billing Assessment: This is a 51 y.o female that presented to the emergency room for syncopal episode. patient has had several syncopal episodes in the past month. Chest xray in the emergency room showed infiltrate. She was also noted to have urinary retention so had a hernandez placed. Hernandez was removed yesterday, Patient was able to void today after several attempts. - Patient Problems (1) Syncopal episodes Current Visit: Yes Status: Acute Code(s): R55 - SYNCOPE AND COLLAPSE SNOMED Code(s): 111972310 Comment: TTE- WNL currently denies dizziness monitor on telemetry will discharge home (2) Urinary retention Current Visit: Yes Status: Acute Code(s): R33.9 - RETENTION OF URINE, UNSPECIFIED SNOMED Code(s): 913288069 Comment: Will remove hernandez today - monitor voiding continues to have urinary retention - straight cath x 1 yesterday with 400 cc output Was able to void today- large amount would recommend follow up urology if urinary retention persists (3) Pneumonia Current Visit: Yes Status: Acute Code(s): J18.9 - PNEUMONIA, UNSPECIFIED ORGANISM SNOMED Code(s): 345509173 Comment: continue levaquin po for 5 days to complete a 7 day course of antibiotics Status and Disposition: Inpatient ; echo pending will discharge in AM pending echo results will monitor urine output post voiding
[2017-04-17] MEDS: Docusate CAP* 100 MG PO SCH (12:12)
[2017-04-17 15:47] VITALS: BP 140/63
[2017-04-17] MEDS: Levofloxacin 500 MG IVPREMIX(* 500 MG/100 ML BAG IVPB SCH (17:57)
--- NOTE | 2017-04-25 15:19 | DS ---
DISCHARGE SUMMARY: DATE OF ADMISSION: 04/15/17 DATE OF DISCHARGE: 04/17/17 PROVIDER: Dr. Mesha Wheeler.* (DICTATED BY NASEEM DEVRIES NP) PRIMARY CARE PROVIDER: Dr. Dhara Matthews. PRIMARY DIAGNOSES: 1. Syncopal episode. 2. Urinary retention. PAST MEDICAL HISTORY: The patient currently has limited information regarding secondary diagnosis. The patient currently lives at the [facility]. DISCHARGE MEDICATIONS: 1. She will be placed on Levaquin 500 mg p.o. daily x5 days. 2. She can continue MiraLAX p.o. daily p.r.n. as needed for constipation. 3. She can resume her docusate 100 mg p.o. b.i.d. HISTORY OF PRESENT ILLNESS AND HOSPITAL COURSE: Ms. Reynaga is a 51-year-old female that was brought to the emergency room by the staff from [facility] as well as her mother with an episode of syncope several hours prior to presentation. The patient has had several episodes of fainting over the past few months and the second episode this month. The previous episode continued several days prior to her admission on 04/15/17. There was unspecified length of unconsciousness. One report was loss of consciousness was 3 minutes. There were no convulsions. There was no recent fever or episodes of malaise reported. The patient denies any chest pain or palpitations. Denies any pain. Denies any head injury or neck pain. While in the emergency room, the patient did have a chest x-ray that showed an infiltrate. She was also noted to have urinary retention of 400 cc in the bladder. Chávez was inserted and urinalysis was sent. Chest x-ray from 04/15/17, there is likely an early pneumonia in the left lung base. Transthoracic echo on 04/15/17, conclusion, left ventricle appears hyperdynamic, the estimated ejection fraction is 60% to 65%. There is trace tricuspid regurgitation. No significant valve findings. The patient continued to have some issues with urinary retention. Her Chávez was removed on the morning of 04/17/17. She was able to void on her own by the afternoon of after much encouragement. At this time, Ms. Reynaga states that she is feeling better. She denies any dizziness or lightheadedness. Denies any headache. At this time, she is safe for discharge back to the [facility]. Ms. Reynaga will be discharged back to [facility]. Vital signs are as follows: Temperature was 98.3, heart rate was 86, respirations 16, O2 saturation 98% on room air, blood pressure 140/63. DISCHARGE PLAN: 1. Ms. Reynaga will be discharged back to [facility]. 2. Activity as tolerated. She may resume all of her previous activities at the [facility]. 3. She should continue on a regular diet as tolerated. 4. I would recommend monitoring her urine output daily. 5. She will be placed on Levaquin 500 mg p.o. b.i.d. for 5 days for treatment of her pneumonia. She should complete all of her antibiotics. Her urinalysis was negative. The patient should follow up with her primary care provider in 4 to 7 days. The patient and Racker's were instructed to return to the emergency room for any chest pain, shortness of breath, inability to urinate, or increased syncopal episodes. This is a summarized report of her medical stay during her hospitalization. For further details, please see the entire medical record. TIME SPENT: Time spent on this discharge was approximately 60 minutes, greater than half the time was spent with the patient and discussing this with her mother over the phone, the discharge plans and instructions. CONDITION ON DISCHARGE: Stable. NASEEM DEVRIES, YESENIA [id number]/[facility] #: [id number] DOUGLAS
== END 2017-04-17 19:05 | DRG 195 ==
LOC: ED 09:39 → MED 13:55 → OBSVTOIN 15:00 → INTOOBSV 15:00 → OBSVTOIN 04-16 15:00
PROVIDERS: ADMIT Internal Medicine; ATTEND Internal Medicine
DX: J18.9 Pneumonia, unspecified organism (principal); F79 Unspecified intellectual disabilities; F81.81 Disorder of written expression; R33.9 Retention of urine, unspecified; R55 Syncope and collapse; Z79.899 Other long term (current) drug therapy
CPT/HCPCS: 36415; 71045; 80048; 80053; 81003; 83605; 83735; 84443; 84484; 85025; 87641; 93005; 93306; 99284; A9270-GY; J1956

== ENCOUNTER 2017-05-16 10:59 | Emergency (ER) | payer MEDICARE, MEDICAID ==
--- NOTE | 2017-05-16 12:35 | RAD ---
HISTORY: Syncope COMPARISONS: February 14, 2017 TECHNIQUE: Multiple contiguous axial CT scans were obtained of the head without intravenous contrast. FINDINGS: HEMORRHAGE/INFARCT: There is no hemorrhage or acute infarct. MASSES/SHIFT: There is no mass or shift. EXTRA-AXIAL SPACES: There are no extra-axial fluid collections. SULCI AND VENTRICLES: There is diffuse and proportional enlargement of the sulci and ventricles. CEREBRUM: There are no focal parenchymal abnormalities. BRAINSTEM: There are no focal parenchymal abnormalities. CEREBELLUM: There are no focal parenchymal abnormalities. VESSELS: The vessels are grossly normal. PARANASAL SINUSES: The paranasal sinuses are clear. ORBITS: The orbits are unremarkable. BONES AND SOFT TISSUE: There is soft tissue swelling along the left parietal scalp. OTHER: None IMPRESSION: NO ACUTE INTRACRANIAL PATHOLOGY.
--- NOTE | 2017-05-16 12:37 | RAD ---
HISTORY: Syncope COMPARISONS: April 15, 2017 VIEWS: 1: frontal portable view of the chest at 12:30 PM FINDINGS: LINES AND TUBES: None. CARDIOMEDIASTINAL SILHOUETTE: The cardiomediastinal silhouette is normal for portable technique. PLEURA: The costophrenic angles are sharp. No pleural abnormalities are noted. LUNG PARENCHYMA: The lungs are clear. ABDOMEN: The upper abdomen is clear. There is no subphrenic gas. BONES AND SOFT TISSUES: No bone or soft tissue abnormalities are noted. IMPRESSION: NO ACTIVE CARDIOPULMONARY DISEASE.
[2017-05-16 12:49] LABS: ABS Basophils 0 10^3/ul (0-0.2); ABS Eosinophils 0.1 10^3/ul (0-0.6); ABS Lymphocytes 1.1 10^3/ul (1.0-4.8); ABS Monocytes 0.7 10^3/ul (0-0.8); ABS Neutrophils 5.5 10^3/ul (1.5-7.7); ABS Nucleated RBC 0 10^3/ul; Eosinophil % 1.1 % (0-6); Hematocrit 42 % (35-47); Lymphocyte % 15.2 % (25-47); Mean Corpuscular HGB Conc 34 g/dl (31-36); Mean Corpuscular Hemoglobin 30 pg (27-31); Mean Corpuscular Volume 88 fL (80-97); Mean Platelet Volume 11 um3 (7.4-10.4); Nucleated Red Blood Cells % 0.1; Platelet Count 150 10^3/ul (150-450); Red Blood Count 4.72 10^6/ul (4.0-5.4); Red Cell Distribution Width 14 % (10.5-15); White Blood Count 7.5 10^3/ul (3.5-10.8)
[2017-05-16 13:09] LABS: EGFR Non-African American 82.7 (>60)
[2017-05-16 14:53] VITALS: BP 107/71
--- NOTE | 2017-05-16 18:34 | ED ---
Kranthi Elizondo Angela, scribed for Aba Hahn MD on 05/16/17 at 1154 . Syncope/Near Syncope - HPI Summary HPI Summary: This pt is a 52 y/o female presenting to [facility] c/o syncopal episode at 06:00 today. Per family member, pt got up this morning and went to her dresser to get dressed when she suddenly had a syncopal episode. Pt did have LOC. She fell backwards and had a head strike. Syncopal episode lasted a few seconds and felt nauseous. Denies vomiting. She currently denies chest pain, palpitations, SOB. Family member reports that looking back at pt's charts, pt has had recurring syncopal episodes since January 2017. Pt has had syncopal episodes in Mar, Apr , May. Pt was last seen in the ED on April 15 and was admitted overnight[address] Dr. Matthews, pt's PCP, placed a heart monitor on the pt for 24 hours, results were read last month. - History Of Current Complaint Chief Complaint: EDSyncope Time Seen by Provider: 05/16/17 11:49 Hx Obtained From: Patient Onset/Duration: Sudden Onset, Lasting Minutes, Resolved Timing: Seconds Activity At Onset: Other - walking towards her dresser Associated Head Trauma: Yes Aggravating Factor(s): Nothing Alleviating Factor(s): Spontaneous Resolution Associated Signs And Symptoms: Negative - Allergies/Home Medications Allergies/Adverse Reactions: Allergies Allergy/AdvReac Type Severity Reaction Status Date / Time No Known Allergies Allergy Verified 05/16/17 11:07 PMH/Surg Hx/FS Hx/Imm Hx Sensory History: Reports: Hx Contacts or Glasses Denies: Hx Legally Blind, Hx Deafness, Hx Hearing Aid Opthamlomology History: Reports: Hx Contacts or Glasses Denies: Hx Legally Blind Neurological History: Reports: Other Neuro Impairments/Disorders - Vasovagal syncope Infectious Disease History: Unable to Obtain/Confirm Infectious Disease History: Denies: Traveled Outside the [place] in Last 30 Days - Family History Known Family History: Negative: Hypertension, Diabetes - Social History Alcohol Use: None Substance Use Type: Reports: None Hx Tobacco Use: No Smoking Status (MU): Never Smoked Tobacco Review of Systems Negative: Fever, Chills Negative: Palpitations, Chest Pain Negative: Shortness Of Breath Positive: Nausea. Negative: Vomiting Positive: Syncope All Other Systems Reviewed And Are Negative: Yes Physical Exam - Summary Physical Exam Summary: VITAL SIGNS: Reviewed. GENERAL: Patient is a well-developed and nourished female who is lying comfortable in the stretcher. Patient is not in any acute respiratory distress. HEAD AND FACE: No signs of trauma. No ecchymosis, hematomas or skull depressions. No sinus tenderness. EYES: PERRLA, EOMI x 2, No injected conjunctiva, no nystagmus. EARS: Hearing grossly intact. Ear canals and tympanic membranes are within normal limits. MOUTH: Oropharynx within normal limits. NECK: Supple, trachea is midline, no adenopathy, no JVD, no carotid bruit, no c- spine tenderness, neck with full ROM. CHEST: Symmetric, no tenderness at palpation LUNGS: Clear to auscultation bilaterally. No wheezing or crackles. CVS: Regular rate and rhythm, S1 and S2 present, no murmurs or gallops appreciated. ABDOMEN: Soft, non-tender. No signs of distention. No rebound no guarding, and no masses palpated. Bowel sounds are normal. EXTREMITIES: FROM in all major joints, no edema, no cyanosis or clubbing. NEURO: Alert and oriented x 3. No acute neurological deficits. Speech is normal and follows commands. SKIN: Dry and warm GCS: 15 Triage Information Reviewed: Yes Vital Signs On Initial Exam: Initial Vitals Temp Pulse Resp BP Pulse Ox 96.8 F 82 18 110/76 100 05/16/17 11:04 05/16/17 11:04 05/16/17 11:04 05/16/17 11:04 05/16/17 11:04 Vital Signs Reviewed: Yes - Tisha Coma Scale Best Eye Response: 4 - Spontaneous Best Motor Response: 6 - Obeys Commands Best Verbal Response: 5 - Oriented Coma Scale Total: 15 Diagnostics - Vital Signs Vital Signs Temp Pulse Resp BP Pulse Ox 05/16/17 11:04 96.8 F 82 18 110/76 100 - Laboratory Result Diagrams: 05/16/17 12:38 05/16/17 12:38 Lab Statement: Any lab studies that have been ordered have been reviewed, and results considered in the medical decision making process. - Radiology Chest XR Xray Interpretation: No Acute Changes - IMPRESSION: No active cardiopulmonary disease. Dr. Hahn has reviewed this radiology report. Radiology Interpretation Completed By: Radiologist - CT Brain CT CT Interpretation: No Acute Changes - IMPRESSION: No acute intracranial pathology. Dr. Hahn has reviewed this radiology report. CT Interpretation Completed By: Radiologist - EKG 11:13 Cardiac Rate: NL EKG Rhythm: Sinus Rhythm - at 71 bpm EKG Interpretation: No ST elevation Re-Evaluation - Re-Evaluation First Eval Re-Evaluation Time: 14:32 Comment: I reviewed the CT, XR, and lab results with the pt and sister. Course/Dx Assessment/Plan: This pt is a 52 y/o female presenting to [facility] c/o syncopal episode at 06:00 today. Per family member, pt got up this morning and went to her dresser to get dressed when she suddenly had a syncopal episode. Pt did have LOC. She fell backwards and had a head strike. Syncopal episode lasted a few seconds and felt nauseous. Denies vomiting. She currently denies chest pain , palpitations, SOB. Family member reports that looking back at pt's charts, pt has had recurring syncopal episodes since January 2017. Pt has had syncopal episodes in Mar, Apr, May. Pt was last seen in the ED on April 15 and was admitted overnight[address] Dr. Matthews, pt's PCP, placed a heart monitor on the pt for 24 hours, results were read last month. Test results without any significant abnormalities. Head CT: No acute intracranial pathology. Chest XR : No active cardiopulmonary disease. Pt is without any complains. She is alert at her baseline. Therefore I discussed the test results and findings with the day care center director. Pt will be discharged to home with follow up from her PCP. Pt is hemodynamically stable, alert and oriented x3. Caregiver is instructed to bring the pt back to the ED for any worsening symptoms. - Diagnoses Provider Diagnoses: Vasovagal syncope Discharge - Discharge Plan Condition: Stable Disposition: HOME Patient Education Materials: Syncope (ED) Referrals: Dhara Matthews MD [Primary Care Provider] - 3 Days Additional Instructions: Please follow up with your primary care provider. RETURN TO THE ED FOR ANY WORSENING SYMPTOMS. The documentation as recorded by the Kranthi warner Angela accurately reflects the service I personally performed and the decisions made by me, Aba Hahn MD.
== END 2017-05-16 15:31 | disposition home or self-care (01) ==
LOC: ED 10:59
DX: R55 Syncope and collapse (principal); R11.0 Nausea; R06.02 Shortness of breath
CPT/HCPCS: 36415; 70450; 71045; 80053; 80320; 83605; 83735; 83880; 84443; 84484; 85025; 86703; 86803; 87340; 93005; 99282; G0480